=== PATIENT | male | born 1950 | race Asian ===

== ENCOUNTER 2019-01-27 15:11 | Outpatient (CLI) | payer OTHER | END 2019-01-27 21:53 | disposition home or self-care (01) | LOC: LABW 15:11 | DX: N02.0 Recurrent and persistent hematuria with minor glomerular abnormality (principal) | CPT/HCPCS: 81000 ==

== ENCOUNTER 2019-04-04 13:16 | Outpatient (CLI) | payer OTHER | END 2019-04-04 20:25 | disposition home or self-care (01) | LOC: MRI 13:16 | DX: S39.92XA Unspecified injury of lower back, initial encounter (principal) ==

== ENCOUNTER 2019-08-16 08:05 | Outpatient (CLI) | payer OTHER | END 2019-08-16 23:14 | disposition home or self-care (01) | LOC: NM 08:05 | DX: Z01.810 Encounter for preprocedural cardiovascular examination (principal); E11.9 Type 2 diabetes mellitus without complications; E78.00 Pure hypercholesterolemia, unspecified; J43.8 Other emphysema | CPT/HCPCS: A9500; J2785 ==

== ENCOUNTER 2019-09-29 07:38 | Day surgery (SDC) | payer OTHER ==
[~2019-09-29] VITALS: Ht 30.5 cm; Wt 0.5 kg
[2019-09-29 08:22] LABS: PLATELET COUNT 239 K/uL (142-355)
[2019-09-29 08:29] LABS: POTASSIUM 3.8 mmol/L (3.6-5.2)
== END 2019-09-29 10:20 | disposition home or self-care (01) ==
LOC: OR 07:38
PROVIDERS: Internal Medicine
PROC: 0DBM8ZZ Excision of Descending Colon, Via Natural or Artificial Opening Endoscopic (ICD-10-PCS; principal; 2019-09-29)
PROC: 0DBN8ZZ Excision of Sigmoid Colon, Via Natural or Artificial Opening Endoscopic (ICD-10-PCS; 2019-09-29)
DX: D12.4 Benign neoplasm of descending colon (principal); D12.5 Benign neoplasm of sigmoid colon; K57.30 Diverticulosis of large intestine without perforation or abscess without bleeding; K64.8 Other hemorrhoids; Z12.11 Encounter for screening for malignant neoplasm of colon
CPT/HCPCS: 80053; 85027; J2001; J2250; J2405; J2704; J2765; J3490; J7120

== ENCOUNTER 2019-12-07 15:19 | Outpatient (CLI) | payer OTHER ==
[2019-12-07 15:39] LABS: PLATELET COUNT 252 K/uL (142-355)
[2019-12-07 16:15] LABS: POTASSIUM 3.8 mmol/L (3.6-5.2)
== END 2019-12-07 19:30 | disposition home or self-care (01) ==
LOC: LAB 15:19
PROVIDERS: Nurse Practitioner Family
DX: Z00.00 Encounter for general adult medical examination without abnormal findings (principal); G89.29 Other chronic pain; K21.9 Gastro-esophageal reflux disease without esophagitis; M54.16 Radiculopathy, lumbar region; E11.9 Type 2 diabetes mellitus without complications; E78.49 Other hyperlipidemia; I10 Essential (primary) hypertension; Z79.899 Other long term (current) drug therapy; N40.0 Benign prostatic hyperplasia without lower urinary tract symptoms
CPT/HCPCS: 80053; 80061; 83036; 84153; 84439; 84443; 85027

== ENCOUNTER 2020-06-20 14:52 | Outpatient (CLI) | payer OTHER | END 2020-06-20 19:12 | disposition home or self-care (01) | LOC: US 14:52 | DX: R29.898 Other symptoms and signs involving the musculoskeletal system (principal); G95.29 Other cord compression; R26.89 Other abnormalities of gait and mobility; F03.90 Unspecified dementia, unspecified severity, without behavioral disturbance, psychotic disturbance, mood disturbance, and anxiety; E11.9 Type 2 diabetes mellitus without complications; J44.9 Chronic obstructive pulmonary disease, unspecified; K80.20 Calculus of gallbladder without cholecystitis without obstruction ==

== ENCOUNTER 2020-08-07 12:00 | Outpatient (CLI) | payer OTHER ==
[2020-08-07 13:09] LABS: PLATELET COUNT 288 K/uL (142-355)
[2020-08-07 13:23] LABS: POTASSIUM 3.7 mmol/L (3.6-5.2)
== END 2020-08-07 19:22 | disposition home or self-care (01) ==
LOC: RAD 12:00
PROVIDERS: Nurse Practitioner Family
DX: R60.0 Localized edema (principal); R80.9 Proteinuria, unspecified
CPT/HCPCS: 36415; 80053; 83880; 85027; 85379

== ENCOUNTER 2020-08-09 11:07 | Outpatient (CLI) | payer OTHER | END 2020-08-09 23:09 | disposition home or self-care (01) | LOC: LAB 11:07 | DX: R60.0 Localized edema (principal); R80.9 Proteinuria, unspecified | CPT/HCPCS: 84165 ==

== ENCOUNTER 2020-08-20 10:05 | Outpatient (CLI) | payer OTHER | END 2020-08-20 19:09 | disposition home or self-care (01) | LOC: RESP 10:05 | DX: R60.0 Localized edema (principal) ==

== ENCOUNTER 2021-04-09 09:53 | Outpatient (CLI) | payer OTHER | END 2021-04-09 21:58 | disposition home or self-care (01) | LOC: MRI 09:53 | PROVIDERS: ATTEND Neurological Surgery | DX: M54.12 Radiculopathy, cervical region (principal) ==

== ENCOUNTER 2021-05-07 13:28 | Outpatient (CLI) | payer OTHER | END 2021-05-07 22:45 | disposition home or self-care (01) | LOC: RAD 13:28 | PROVIDERS: ATTEND Nurse Practitioner Family | DX: Z01.818 Encounter for other preprocedural examination (principal) ==

== ENCOUNTER 2021-05-23 07:57 | Outpatient (CLI) | payer OTHER | END 2021-05-23 19:00 | disposition home or self-care (01) | LOC: NM 07:57 | PROVIDERS: ATTEND Nurse Practitioner Family | DX: Z01.818 Encounter for other preprocedural examination (principal) | CPT/HCPCS: A9500 ==

== ENCOUNTER 2021-07-03 13:43 | Inpatient (IN) | payer OTHER ==
[~2021-07-03] VITALS: Ht 165.1 cm; Wt 68.5 kg
[2021-07-03 18:00] VITALS: BP 140/87; TEMP 98.1; Ht 165.1 cm; Wt 68.5 kg
[2021-07-03 20:00] VITALS: BP 131/58; TEMP 97.9
[2021-07-04 08:00] VITALS: BP 134/80; TEMP 97.6
--- NOTE | 2021-07-04 17:31 | NUR ---
IDT Team Meeting and is in the Swing Bed Program: Met with the patient today in his room before and stated pleased with meals. Patient is on 1800 calorie diet plan and is 65" at 160.7 lbs. was in the room by phone amd he has had trouble swallowing and [place], ST is working closely with him as well as PT and OT. He received fried shrimp and he had problems consuming and he is tired and in pain and we discussed pain management and team stressed to ask for pain medication as needed and especially before therapy so he can participate in therapy need to get on schedule so they can move forward in making progress. 26 years, may need chopped meats and speech is slurred, appointment with MD at [facility] and team is going to get together and set up for the paitent, had surgery on the and suppose to go back to [facility] to visit with the doctor. RD available as needed and pleased with food and meals.
--- NOTE | 2021-07-04 17:42 | NUR ---
Patient was admitted with S/P cervical diskectomy and is 5'5" at 160.7 lbs. and BMI at 26.7 and is overweight and here for orthopedic aftercare and labs reveal RBC, Hgb, Hct, MCHC, ALT, all low and then HGBA1c at 67 and is elevated; see other labs in the EMR and all other labs are wnl's-see chart; Trig, 201, Chol, 224, LDL 235 and VLDL 40 and all are elevated. Patient is on an 1800 claorie ADA 2 gm na diet plan and ate 50% and then 75% of 2 meals per EMR, smokes about 20 cigarettes daily, GERD, walker and cane at home, dx. of arthritis, GERD, DMII for 10 years. glucose at 114. Needs set up with meals. IBW = 136+/-10% (122 to 150 lbs.) and kcal needs x 25 to 40 = 1500 to 2500 kcal per day and protein needs x 1.2 to 1.5 = 74 to 93 grams per day and fluids = x 25 to 40 = 1500 to 2500 ml/cc per day. RD available as needed. RD Recommendations: 1-Monitor Labs 2-Add High fiber to the diet plan and may want to add cardiac adding low fat to the diet plan 3-Add Vitamin C 500 mg BID 4-Add ZNSO4 220 mg per day and d/c in 14 days 5-Make néstor elal food preferences are honored and all stated on the diet card and substitutes ar offered with all meals. 6-May want to increase foods high in Fe/Iron 7-Make sure hydrated
[2021-07-04 20:00] VITALS: BP 151/83; TEMP 97.7
--- NOTE | 2021-07-05 04:06 | NUR ---
PT RESTING QUIETLY WITH NO VOICED COMPLAINTS.
[2021-07-05 08:08] VITALS: BP 119/72; TEMP 98.4
--- NOTE | 2021-07-05 10:11 | NUR ---
today i spoke with pts , Genevieve Thompson, , about his postop follow up with Dr. Cedillo on thursday07/09/21 @ 11:15am in [place]. She asked that we have him ready to leave by 10:45am and that she would pick him up at the main entrance. She was advised that he would need to wear a mask at all times while he is away from our facility and also that she would need to wear a mask at all times while she is with him, she verbalized understanding.
--- NOTE | 2021-07-05 10:17 | NUR ---
07/05/21 0930 PT SITTING IN CHAIR EATING BREAKFAST THERAPY CAME TO ROOM TO ASSIST HIM WITH THERAPY.CC
--- NOTE | 2021-07-05 10:21 | NUR ---
we had IDT meeting in pts room yesterday with his , Maryse and granddaughter on speaker phone and at the window for visit. We also had Luba Fitzpatrick RD on speaker phone. We are adjusting his diet to chop meats and will ask nurses to assess pain and medicate prior to therapy daily if needed. his stated goal is to return home to his as independent as possible and would prefer [facility] vs outpt therapy.
--- NOTE | 2021-07-05 12:33 | NUR ---
07/05/21 1215 SITTING UP IN CHAIR DOZING NO C/O VOICED.PT STATES HE DOESNOT NEED ANY PAIN MEDICATION AT THIS TIME.CALL LIGHT WITHIN REACH.CC
--- NOTE | 2021-07-05 16:58 | NUR ---
07/05/21 8635 ASSISTED BACK TO BED WITH PHYSICAL THERAPY.PT C/O PAIN IN NECK 07/09.TRAMADOL GIVEN.CC
[2021-07-05 20:00] VITALS: BP 126/74; TEMP 98.1
[2021-07-06 08:00] VITALS: BP 139/78; TEMP 97.7
--- NOTE | 2021-07-06 09:00 | NUR ---
ASSISTED WITH PULLING PT UP IN BED, EXTENSIVE ASSIST X2, NAD NOTED, PT LYING IN HF, NONLABORED BREATHING, PILLOWS ADJUSTED FOR COMFORT OF NECK, NO FURTHER NEEDS AT THIS TIME
[2021-07-06 20:00] VITALS: BP 134/83; TEMP 98.3
--- NOTE | 2021-07-07 03:45 | NUR ---
Patient called to nurses station and requested something for pain. Prn, tramadol, 50mg, po was administered. Patient said that he was having trouble resting due to pain in his neck. Patient was repositioned in bed. No acute distress noted, and call light is within reach. Will continue to monitor.
[2021-07-07 08:00] VITALS: BP 105/62; TEMP 98.2
[2021-07-07 20:00] VITALS: BP 141/90; TEMP 99
[2021-07-08 08:00] VITALS: BP 144/95; TEMP 98.3
[2021-07-08 20:00] VITALS: BP 140/83; TEMP 97.4
--- NOTE | 2021-07-09 04:20 | NUR ---
PT SLEEPING. NO DISTRESS NOTED. NO FURTHER COMPLAINTS OF PAIN AT THIS TIME.
[2021-07-09 08:00] VITALS: BP 105/73; TEMP 98.4
--- NOTE | 2021-07-09 10:45 | NUR ---
PATIENT LEFT VIA W/C IN PERSONAL VEHICLE WITH DRIVING FOR APPOINTMENT.
--- NOTE | 2021-07-09 12:30 | NUR ---
PATIENT ARRIVED BACK FROM APPOINTMENT. PATIENT RESTING IN BED. NAD NOTED.
[2021-07-09 20:00] VITALS: BP 139/78; TEMP 97.8
[2021-07-10 08:00] VITALS: BP 106/66; TEMP 97.5
--- NOTE | 2021-07-10 09:00 | NUR ---
IN PT RM FOR MORNING ASSESSMENT AND MED PASS, PT LYING IN LF, NAD NOTED, NONLABRORED BREATHING, PT STATES HE HAS NO PAIN AT THIS TIME, PT REQUEST TO MOVE TO CHAIR, PT MOVED TO EOB WITH X1 ASSIST WITH LIMITED ASSISTANCE, PT USED WALKER AND LIMITED ASSISTANCE X2 TO TRANSFER FROM BED TO CHAIR, NAD NOTED, PT TOLERATED WELL, SHEETS CHANGED AT THIS TIME, PT CLEANED FACE WITHOUT ASSISTANCE, NO FURTHER NEEDS AT THIS TIME, CALL LIGHT PLACED WITHIN REACH
[2021-07-10 20:00] VITALS: BP 130/64; TEMP 98.6
[2021-07-11 08:00] VITALS: BP 121/76; TEMP 97.6
--- NOTE | 2021-07-11 09:00 | NUR ---
OT IN RM WITH PT AT THIS TIME, PT SITTING ON EOB, NAD NOTED, NONLABORED BREATHING, OT STATES PT TRANSFERRED FROM BED TO CHAIR WITH MININAL ASSISTANCE NEEDED AND WALKER, PT ATE BREAKFAST WITHOUT ASSISTANCE AND TOOK AM MEDS WITHOUT DIFFICULTY, SURGICAL WOUND TO RT SIDE OF NECK DRY AND INTACT NO DRAINAGE OR REDDNESS NOTED,NO FURTHER NEEDS AT THIS TIME, CALL LIGHT WITHIN REACH, WILL CONTINUE TO MONITOR
[2021-07-11 20:00] VITALS: BP 119/67; TEMP 98.6
--- NOTE | 2021-07-12 04:47 | NUR ---
Pt resting in bed alert and oriented. Requested help with urinal during the night. HOB elevated in mid callahan's position. No s/s of distress noted. Call light in easy reach.
--- NOTE | 2021-07-12 07:40 | NUR ---
PT SITTING UP IN BED, AWAKE AND ALERT WITH HIS DEPENDS OFF. PT STATED "I NEED TO GET UP AND GET IN THE SHOWER, I SMELL PISSY." ASSISTED PT BY CLEANING HIM AND PUT ON A NEW DEPENDS AND NEW T-SHIRT. ASSISTED PT TO REPOSITION IN BED. NO S/S OF PAIN/DISCOMFORT/DISTRESS NOTED.
[2021-07-12 08:13] VITALS: BP 125/87; TEMP 97.7
--- NOTE | 2021-07-12 10:49 | NUR ---
PT GIVEN A SHOWER BY OT TODAY. BED LINEN CHANGED. NO S/S OF PAIN/DISCOMFORT NOTED. NAD NOTED.
--- NOTE | 2021-07-12 15:21 | NUR ---
Talked with Calista and she is the IDT senior biostatistician/group leader and patient is on a Mechnical soft diet plan and has decreased 10 lbs. and wants to go home and is on 1800 calorie diet plan and is non-cpmplinat and only wants to go home and has a room full of snacks, b/s's are ok. Just wants to go home and own't sign the diet refusal form. RD available as needed RD Recommednaitons: 1-NCS or have a dietary refusal form signed
[2021-07-12 20:00] VITALS: BP 137/76; TEMP 98.9
--- NOTE | 2021-07-13 06:33 | NUR ---
PT HAS RESTED WITH EYES CLOSED. NO COMPLAINTS.
[2021-07-13 08:00] VITALS: BP 114/75; TEMP 98
[2021-07-13 20:00] VITALS: BP 134/79; TEMP 97.5
--- NOTE | 2021-07-14 04:22 | NUR ---
PT SLEEPING. NO DISTRESS NOTED.
[2021-07-14 08:00] VITALS: BP 137/79; TEMP 98.1
[2021-07-14 20:00] VITALS: BP 118/50; TEMP 98.4
--- NOTE | 2021-07-14 22:25 | NUR ---
PT STATED HE WAS "FEELING PRETTY GOOD." PT HAD BEEN UP TODAY TO BATHROOM USING WALKER AND ASSIST X1. PT WANTS TO KNOW WHEN HE'S GOING HOME.
--- NOTE | 2021-07-15 07:52 | NUR ---
PT SITTING UP IN BED EATING POTATO CHIPS, PT STATED "I'M HUNGRY, WHEN IS BREAKFAST COMING?" PT DENIES ANY PAIN/DISCOMFORT. PT ALERT AND OREINTED TO OWN ABILITY.
[2021-07-15 08:00] VITALS: BP 135/76; TEMP 98.1
--- NOTE | 2021-07-15 11:23 | NUR ---
returned call to pts Mrs. Genevieve Thompson [phone], she asked that therapy update her on what equipment and how on a tenative discharge date for pt.
--- NOTE | 2021-07-15 18:41 | NUR ---
PT UP IN CHAIR MOST OF THE DAY. TOOK A SHOWER WITH THE ASSISTANCE OF OT IN AM. PT C/O SHOULDER PAIN AND ADMINISTERED PAIN MED. PTS FAMILY BROUGHT HIM DINNER. PT STATED "I WILL EAT IT LATER, I JUST WANT TO LAY DOWN FOR NOW." NAD NOTED. PT ALERT AND ORIENTED. PT USES URINAL WITHOUT ASSISTANCE FROM STAFF.
[2021-07-15 20:00] VITALS: BP 131/87; TEMP 98.6
--- NOTE | 2021-07-16 05:54 | NUR ---
Pt resting in bed with eyes closed. Pt received prn Tramadol 50mg with hs meds for generalized pain with relief noted. Pt c/o "really bad gas pain." Dr. Lara was notified at 2136 with new orders received and carried out. Pt received GI cocktail for upper gastric pain with relief noted. No further c/o voiced this shift. Pt utilizes urinal during the night but also wears depends. Pt able to position self in bed but is very weak. No s/s of distress at this time. Call light in easy reach.
[2021-07-16 08:00] VITALS: BP 141/80; TEMP 97.8
--- NOTE | 2021-07-16 10:39 | NUR ---
PT IN ROOM SITTING UP IN CHAIR. PT REFUSED BREAKFAST TRAY AND FOOD THAT WAS OFFERED TO HIM. PT CALLED HIS AND BROUGHT PT BREAKFAST, PT CONTENT. SPOKE WITH WHEN SHE BROUGHT PTS FOOD. STATED THAT SHE WANTED TO MAKE SURE PT HAD THE PROPER TX THAT HE NEEDED, REGARDING PHYSICAL THERAPY. PT REPORTING TO THAT HE HAS NOT BEEN RECEIVING THE TX THAT HE NEEDS. ASSURED THAT PT IS RECEIVING THE TX THAT HE NEED AND HE HAS BEEN TAKING A SHOWER, HE HAD A SHOWER ON 07/15/21. PTS BED LINEN CHANGED TODAY.PT ALERT AND OREINTED X3. HAS AMS AT TIMES AND STATED THIS WAS PTS BASELINE PRIOR TO HIS ADMISSION TO THIS FACILITY.
--- NOTE | 2021-07-16 14:18 | NUR ---
PTS IV=525. PT HAD EATEN A DWIGHT SIZE CHOCOLATE CANDY BAR THAT WAS SENT IN BY FAMILY. PT ED ON DIET TO CONTROL HIS BLOOD GLUCOSE. PT DENIES ANY PAIN/DISCOMFORT. PT UP IN CHAIR UNTIL AFTER LUNCH. COMPLIANT WITH THERAPY. ALERT AND ORIENTED. PT TALKED ABOUT HIS RELATIVES AND WHO HE WAS RELATED TO. NO VOICED COMPLAINTS. PT IN BED WITH EYES CLOSED.
--- NOTE | 2021-07-16 15:30 | NUR ---
Per therapist, home evaluation is scheduled for 07/18/21 at 9:45 AM. has verbalized to nursing staff that she will be coming to pick him up morning for the home evaluation, and she doesn't want him to be picked up by anyone else. has reported that Mr. Thompson's daughters will not be living with them when he is discharged from this center.
--- NOTE | 2021-07-16 18:53 | NUR ---
PT UP IN CHAIR MOST OF THE DAY. PT C/O SHOULDER PAIN AT THE END OF SHIFT AND WAS ADMINISTERED PAIN MED ORDERED. PTS HAS BROUGHT PT FOOD FOR BREAKFAST AND DINNER. PTS APPETITE IS GOOD, HE EATS SNACKS THROUGHOUT DAY. NAD NOTED. PT ALERT AND ORIENTED THIS SHIFT WITH MINIMUM S/S OF AMS.
[2021-07-16 20:00] VITALS: BP 133/45; TEMP 98.2
--- NOTE | 2021-07-16 20:28 | NUR ---
Pt resting in bed on his right side with eyes closed. No s/s of distress.
--- NOTE | 2021-07-17 04:50 | NUR ---
Pt resting in bed with eyes closed. PRN pain med given at hs for generalized pain with relief noted. No further c/o voiced at this time. No s/s of distress. Call light in easy reach.
[2021-07-17 08:00] VITALS: BP 117/74; TEMP 98.2
[2021-07-17 20:00] VITALS: BP 111/65; TEMP 98.5
--- NOTE | 2021-07-17 20:53 | NUR ---
PT C/O RIGHT SHOULDER PAIN. TRAMADOL HAD BEEN GIVEN AT 1800 BY DAY SHIFT BUT WAS NOT DOCUMENTED. COUNTED PILLS AND THEY MATCHED THE REMAINING AMOUNT. BACLOFEN PO GIVEN.
[2021-07-18 08:00] VITALS: BP 137/79; TEMP 98.2
--- NOTE | 2021-07-18 14:57 | NUR ---
PATIENT RETURNED FROM HOME EVALUATION.
--- NOTE | 2021-07-18 15:52 | NUR ---
Orders faxed to [facility] for [facility] and [facility]. Also outpatient PT orders faxed to [facility].
[2021-07-18 20:00] VITALS: BP 128/90; TEMP 98.4
[2021-07-19 08:00] VITALS: BP 136/70; TEMP 98.9
--- NOTE | 2021-07-19 08:20 | NUR ---
PT IS AWAKE AND ON THE PHONE WHILE LAYING IN LF SUPINE POSITION. HEART SOUNDS S1 AND S2 AUSCULTATED, PULSES PALPATED IN ALL 4 EXTREMITIESS, CAP REFILL <3 SEC, NO EDEMA PRESENT. LUNG ARE CLEAR IN ALL 5 LOBES, NO COUGH PRESENT. GASTRIC SOUNDS AUSCULATED IN ALL QUADRANTS. PT DENIES ANY PAIN AT THIS TIME. CALL LIGHT IS WITHIN REACH AND BED RAILS UP X2. WILL CONTINUE TO MONITOR.
--- NOTE | 2021-07-19 11:46 | NUR ---
Spoke with [facility] and they said that the had already picked up the [facility], and that he previously gotten a [facility]. [facility] was contacted and appointment was set up for ThursdayJuly 22 @ 3pm. Notified nursing of equipment needs and therapy appointments being set up.
--- NOTE | 2021-07-19 12:56 | NUR ---
PT RECIEVED EDUCATION VERBALLY AND VERBALIZED UNDERSTANDING. PRINTOUTS OF EDUCATION, DISCHARGE INFORMATION, AND APPOINTMENT CARD FOR PHYSICAL THERAPY WERE GIVEN TO THE PT FOR FURTHER REVIEW IF NEEDED. PT WAS ESCORTED VIA WHEELCHAIR TO PERSONAL VEHICLE. PT AND PT'S PERSONAL BELONGINGS WERE PLACED INSIDE THE VEHICLE WITH PT'S SPOUSE ESCORTING HIM HOME. NAD WAS NOTED DURING DISCHARGE FROM THE HOSPITAL.
== END 2021-07-19 12:47 | disposition home or self-care (01) | DRG 561 ==
LOC: MED/SURG 13:43
PROVIDERS: ADMIT Family Medicine; ATTEND Family Medicine
DX: Z47.89 Encounter for other orthopedic aftercare (principal); M54.12 Radiculopathy, cervical region; J44.9 Chronic obstructive pulmonary disease, unspecified; E11.9 Type 2 diabetes mellitus without complications; R13.12 Dysphagia, oropharyngeal phase; R48.8 Other symbolic dysfunctions; R49.8 Other voice and resonance disorders; R26.2 Difficulty in walking, not elsewhere classified; M62.81 Muscle weakness (generalized); Z74.1 Need for assistance with personal care; D64.9 Anemia, unspecified; K21.9 Gastro-esophageal reflux disease without esophagitis; M48.02 Spinal stenosis, cervical region
CPT/HCPCS: 87081

== ENCOUNTER 2021-08-13 17:22 | Outpatient (CLI) | payer OTHER | END 2021-08-13 19:07 | disposition home or self-care (01) | LOC: RAD 17:22 | PROVIDERS: ATTEND Nurse Practitioner Family | DX: R60.0 Localized edema (principal) ==

== ENCOUNTER 2021-08-20 15:31 | Outpatient (CLI) | payer OTHER | END 2021-08-20 20:18 | disposition home or self-care (01) | LOC: LAB 15:31 | PROVIDERS: ATTEND Nurse Practitioner Family | DX: D64.89 Other specified anemias (principal) | CPT/HCPCS: 82272 ==

== ENCOUNTER 2021-10-28 09:04 | Outpatient (CLI) | payer OTHER | END 2021-10-28 20:58 | disposition home or self-care (01) | LOC: RESP 09:04 | PROVIDERS: ATTEND Nurse Practitioner Family | DX: R60.0 Localized edema (principal); H54.7 Unspecified visual loss; R42 Dizziness and giddiness | CPT/HCPCS: 36415; 82565; 84520; A9576 ==

== ENCOUNTER 2022-10-08 12:25 | Outpatient (CLI) | payer OTHER | END 2022-10-08 19:13 | disposition home or self-care (01) | LOC: RAD 12:25 | PROVIDERS: ATTEND Physician Assistant | DX: M54.59 Other low back pain (principal) ==

== ENCOUNTER 2022-12-03 12:39 | Outpatient (CLI) | payer OTHER | END 2022-12-03 19:17 | disposition home or self-care (01) | LOC: MRI 12:39 | PROVIDERS: ATTEND Physician Assistant | DX: M54.16 Radiculopathy, lumbar region (principal) ==

== ENCOUNTER 2023-06-08 08:24 | Outpatient (CLI) | payer OTHER | END 2023-06-08 20:45 | disposition home or self-care (01) | LOC: RAD 08:24 | PROVIDERS: ATTEND Nurse Practitioner Family | DX: S16.1XXA Strain of muscle, fascia and tendon at neck level, initial encounter (principal); Y92.89 Other specified places as the place of occurrence of the external cause ==